=== PATIENT | female | born 1940 | race African-American/Black ===

== ENCOUNTER 2020-09-29 11:31 | Emergency (ER) | payer BC, OTHER ==
[~2020-09-29] VITALS: Ht 157.5 cm; Wt 79.0 kg
[~2020-09-29 11:31] MED LIST: AMLO5TAB4 MT; CELE200C PO; CLOP75TA4 PO; CRES10 PO; DIPH25CA83 PO; OMEP10SU2 PO
[2020-09-29 11:56] VITALS: BP 125/50
[2020-09-29] MEDS ORDERED: ALBUTEROL (0.083%) 2.5MG/3ML NEB HHN STA (12:22)
[2020-09-29] MEDS ORDERED: IPRATROPIUM BROMIDE (0.02%) 0.5MG/2.5ML NEB HHN STA (12:22)
[2020-09-29 13:02] LABS: BASOPHILS % 0.7 % (0.0-2.0); EOSINOPHILS % 2.1 % (0.0-5.0); HEMATOCRIT. 40.3 % (36.0-48.0); HEMOGLOBIN. 13.2 g/dL (12.0-16.0); LYMPHOCYTES % 30.5 % (20.0-50.0); MEAN CORPUSCULAR HEMOGLOBIN 31.4 pg (28.0-32.0); MEAN CORPUSCULAR VOLUME 95.8 fL (81.0-99.0); MEAN PLATELET VOLUME 7.9 fl (7.4-10.4); MONOCYTES % 7.3 % (2.0-8.0); NEUTROPHILS % 59.4 % (40.0-76.0); PLATELET 218 x1000/uL (130-400); RED CELL DISTRIBUTION WIDTH 13.1 % (11.6-14.6)
[2020-09-29 13:14] LABS: CHLORIDE 108 mEq/L (98-107)
== END 2020-09-29 15:32 | disposition left against medical advice (07) ==
LOC: ER 11:31
DX: R06.2 Wheezing (principal); R06.00 Dyspnea, unspecified; M54.30 Sciatica, unspecified side; I10 Essential (primary) hypertension; G40.909 Epilepsy, unspecified, not intractable, without status epilepticus; Z86.73 Personal history of transient ischemic attack (TIA), and cerebral infarction without residual deficits
CPT/HCPCS: 36415; 71045; 80053; 83880; 84484; 85025; 93005; 93970; 94640; 99285